=== PATIENT | female | born 1955 | race Caucasian/White ===

== ENCOUNTER 2022-02-17 20:14 | Emergency (ER) | payer MEDICARE, MEDICAID ==
[2022-02-17] MEDS ORDERED: ONDANSETRON ODT 4 MG TABLET TL STA (20:30)
--- NOTE | 2022-02-17 20:52 | ED Physician Documentation ---
PD HPI ABD PAIN - Stated complaint Stated Complaint: VOMITING,ABD/BACK PX - Chief complaint Chief Complaint: Abd Pain - History obtained from History obtained from: Patient, Family - History of Present Illness Timing - onset: Other (has been having these symptoms x 2.5 months, worse for few weeks and worsening still past few days) Quality: Pain Location: All over / everywhere (predominantly across upper abdomen) Associated symptoms: Nausea, Vomiting. No: Fever, Hematemesis, Diarrhea, Constipation, Melena, Hematochezia, Dysuria, Chest pain Similar symptoms before: No diagnosis Recently seen: Not recently seen - Additional information Additional information: c/o abdominal pain, predominantly across upper abdomen, radiating to back, with nausea and vomiting x approximately 10 weeks. Initially symptoms were intermittent but over past few weeks have become increasingly frequent, persistent, and intense, and past few days symptoms are constant and she is having difficulty keeping any PO down today. patient says she had a "falling out" (per patient) with her last primary care provider and thus currently does not have one; furthermore, she has not had any testing for these symptoms. Review of Systems Constitutional: denies: Fever, Chills, Sweats Eyes: reports: Reviewed and negative Ears: reports: Reviewed and negative Nose: reports: Reviewed and negative Throat: reports: Reviewed and negative Cardiac: reports: Reviewed and negative Respiratory: reports: Reviewed and negative GI: reports: Abdominal Pain, Nausea, Vomiting. 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 (this is why she takes xarelto) - Past Surgical History Past Surgical History: Yes General: Gastric surgery (gastric sleeve) - Present Medications Home Medications: Ambulatory Orders Medication Instructions Recorded Confirmed Bupropion HCl [Wellbutrin Xl] 300 mg PO DAILY 02/18/22 02/18/22 Lisinopril [Zestril] 20 mg PO DAILY 02/18/22 02/18/22 Omeprazole 40 mg PO DAILY 02/18/22 02/18/22 Rivaroxaban [Xarelto] 20 mg PO DAILY 02/18/22 02/18/22 hydroCHLOROthiazide [Hydrodiuril] 25 mg PO DAILY 02/18/22 02/18/22 - Allergies Allergies/Adverse Reactions: Allergies Allergy/AdvReac Type Severity Reaction Status Date / Time No Known Drug Allergies Allergy Verified 02/17/22 20:29 - Social History Does the pt smoke?: No Smoking Status: Never smoker Does the pt have substance abuse?: No - Immunizations Immunizations are current?: Yes - POLST Patient has POLST: No PD ED PE NORMAL - Vitals Vital signs reviewed: Yes - General General: Other (obese, appears uncomfortable due to painful distress, prefers to lie on either side (appears more uncomfortable and reports worsening pain when lying supine for part of exam)) - HEENT HEENT: Other (tacky/pasty mucous membranes) - Cardiac Cardiac: RRR, No murmur - Respiratory Respiratory: No respiratory distress, Clear bilaterally - Abdomen Abdomen: Soft, Non distended, Other (TTP across upper abdomen, most pronounced in epigastrium and less so in RUQ) - Back Back: No CVA TTP, No spinal TTP - Derm Derm: Normal color, Warm and dry - Extremities Extremities: No edema Results - Vitals Vitals: Vital Signs - 24 hr 02/17/22 02/17/22 02/18/22 20:23 23:44 00:49 Temperature 35.6 C L Heart Rate 67 77 96 Respiratory 18 16 16 Rate Blood Pressure 147/79 H 131/103 H 127/50 L O2 Saturation 100 96 97 02/18/22 02/18/22 02/18/22 02:05 04:02 06:00 Temperature 36.8 C 35.9 C L Heart Rate 77 89 78 Respiratory 16 16 18 Rate Blood Pressure 131/62 H 121/62 134/65 H O2 Saturation 100 95 99 Oxygen O2 Source Room air - Labs Labs: Laboratory Tests 02/17/22 02/17/22 02/17/22 20:51 21:30 23:30 WBC 9.3 RBC 5.39 Hgb 14.3 Hct 44.2 MCV 82.0 MCH 26.5 L MCHC 32.4 RDW 16.1 H Plt Count 303 MPV 10.4 Neut # (Auto) 6.9 H Lymph # (Auto) 1.5 [place] # (Auto) 0.8 Eos # (Auto) 0.1 Baso # (Auto) 0.1 Absolute Nucleated RBC 0.00 Nucleated RBC % 0.0 Sodium 138 Potassium 3.8 Chloride 93 L Carbon Dioxide 25 Anion Gap 20.0 H BUN 40 H Creatinine 1.5 H Estimated GFR (MDRD) 35 L Glucose 124 H Calcium 10.8 H Total Bilirubin 5.7 H AST 322 H ALT 310 H Alkaline Phosphatase 891 H Total Protein 8.1 Albumin 4.0 Globulin 4.1 Albumin/Globulin Ratio 1.0 Lipase 121 H Urine Color Urine Clarity Urine pH Ur Specific [place] Urine Protein Urine Glucose (UA) Urine Ketones Urine Occult Blood Urine Nitrite Urine Bilirubin Urine Urobilinogen Ur Leukocyte Esterase Urine RBC Urine WBC Ur Squamous Epith Cells Urine Bacteria Ur Microscopic Review Urine Culture Comments SARS-CoV-2 (PCR) NOT DETECTED 02/18/22 02/18/22 02/18/22 00:55 05:48 05:48 WBC 11.3 H RBC 5.18 Hgb 13.9 Hct 43.7 MCV 84.4 MCH 26.8 L MCHC 31.8 L RDW 16.1 H Plt Count 247 MPV 10.7 Neut # (Auto) 9.3 H Lymph # (Auto) 0.8 L [place] # (Auto) 1.1 H Eos # (Auto) 0.0 Baso # (Auto) 0.0 Absolute Nucleated RBC 0.00 Nucleated RBC % 0.0 Sodium 137 Potassium 4.0 Chloride 97 L Carbon Dioxide 25 Anion Gap 15.0 H BUN 37 H Creatinine 1.3 H Estimated GFR (MDRD) 41 L Glucose 112 H Calcium 10.2 Total Bilirubin 6.3 H AST 406 H ALT 328 H Alkaline Phosphatase 816 H Total Protein 7.6 Albumin 3.6 Globulin 4.0 Albumin/Globulin Ratio 0.9 L Lipase 51 Urine Color DARK YELLOW Urine Clarity HAZY Urine pH 5.5 Ur Specific [place] >=1.030 H Urine Protein 100 H Urine Glucose (UA) NEGATIVE Urine Ketones 15 H Urine Occult Blood NEGATIVE Urine Nitrite NEGATIVE Urine Bilirubin LARGE H Urine Urobilinogen >=8.0 H Ur Leukocyte Esterase SMALL H Urine RBC 0-5 Urine WBC 6-10 H Ur Squamous Epith Cells MANY Squamous H Urine Bacteria Few Ur Microscopic Review INDICATED Urine Culture Comments NOT INDICATED SARS-CoV-2 (PCR) - Rads (name of study) CT A/P Radiology: Prelim report reviewed, See rad report RUQ US Radiology: Prelim report reviewed, See rad report PD MEDICAL DECISION MAKING - ED course Complexity details: reviewed results, re-evaluated patient, considered differential, d/w patient ED course: Patient is in NAD after only 0.5mg IV dilaudid, reports excellent relief of her pain. She is also given IV zofran and IV NS. No previous results for comparative purposes. She has mildly elevated BUN (40) and creatinine (1.5). Most striking are her abnormal LFTs, with bilirubin 5.7, AST 322, ALT 310, and alkaline phosphatase 891. Lipase mildly elevated at 121. CT A/P intended to be with IV contrast but IV failed and thus the study is essentially noncontrast, demonstrates "mutiple clustered calcified gallstones...demonstrated in the region of the gallbladder neck. Gallbladder is well distended without wall thickening or pericholecystic fluid. No biliary ductal dilatation" (per radiology reading). US reading by radiology is "mild biliary ductal dilatation. Recommend correlation with laboratory values for possible biliary obstruction". She is held in ED overnight with plan of MRCP in the morning. Repeat LFTs show mostly mildly increased LFTs from previous result. Given concern for possible cholangitis, she is given IV zosyn. Care of patient turned over to Dr. Vee at end of my shift pending MRCP, the result of which should help determine appropriate disposition (admission to [facility] vs transfer to facility that can perform ERCP if this is indicated by MRCP result)
[2022-02-17 20:55] LABS: BASOPHILS # (AUTO) 0.1 10^3/uL (0.0-0.1); EOSINOPHILS # (AUTO) 0.1 10^3/uL (0.0-0.7); EOSINOPHILS % (AUTO) 0.8 %; HCT - HEMATOCRIT 44.2 % (37.0-47.0); HGB - HEMOGLOBIN 14.3 g/dL (12.0-16.0); LYMPHOCYTES # (AUTO) 1.5 10^3/uL (1.5-3.5); LYMPHOCYTES % (AUTO) 15.7 %; MEAN CORPUSCULAR HEMOGLOBIN 26.5 pg (27.0-31.0); MEAN CORPUSCULAR HGB CONC 32.4 g/dL (32.0-36.0); MEAN PLATELET VOLUME 10.4 fL (7.9-10.8); MONOCYTES # (AUTO) 0.8 10^3/uL (0.0-1.0); MONOCYTES % (AUTO) 8.4 %; NEUTROPHILS # (AUTO) 6.9 10^3/uL (1.5-6.6); NEUTROPHILS % (AUTO) 73.6 %; PLT - PLATELET COUNT 303 10^3/uL (130-450); RED BLOOD COUNT 5.39 10^6/uL (4.20-5.40); RED CELL DISTRIBUTION WIDTH 16.1 % (12.0-15.0); WHITE BLOOD COUNT 9.3 x10^3/uL (4.8-10.8)
[2022-02-17] MEDS ORDERED: SODIUM CHLORIDE 0.9% 1,000 ML IV STA (21:08)
[2022-02-17] MEDS ORDERED: ONDANSETRON 4 MG/2 ML VIAL IVP STA (21:08)
[2022-02-17] MEDS ORDERED: HYDROmorphone 1 MG/ML CARPUJECT IVP STA (21:08)
[2022-02-17 21:48] LABS: BILIRUBIN,TOTAL 5.7 mg/dL (0.2-1.0); CALCIUM 10.8 mg/dL (8.5-10.3); CREATININE 1.5 mg/dL (0.4-1.0); POTASSIUM 3.8 mmol/L (3.5-5.0); TOTAL PROTEIN 8.1 g/dL (6.7-8.2)
[2022-02-17] MEDS ORDERED: iohexoL-300 100 ML VIAL ONE (22:21)
--- NOTE | 2022-02-18 00:03 | CT Report ---
PROCEDURE: Abdomen/Pelvis W INDICATIONS: Abdominal pain. CONTRAST: IV CONTRAST: Isovue 300 ml: 100 PO CONTRAST: *NO PO CONTRAST TECHNIQUE: After the administration of intravenous contrast, 5 mm thick sections acquired from the diaphragms to the symphysis. 5 mm thick coronal and sagittal reformats were acquired. For radiation dose reducti on, the following was used: automated exposure control, adjustment of mA and/or kV according to dung ent size. Patient's IV extravasated during the course of the study. COMPARISON: None. FINDINGS: Image quality: Limited evaluation secondary to suboptimal contrast opacification. The majority of the contrast appears to have extravasated. Lung bases: Unremarkable. Heart: Heart is normal in size. There is a moderate-sized hiatal hernia. ABDOMEN: Liver: No mass lesion. Gallbladder:Multiple clustered calcified gallstones are demonstrated in the region of the gallbladde r neck. Gallbladder is well distended without wall thickening or pericholecystic fluid. Biliary ducts: No biliary ductal dilatation. Pancreas: Unremarkable. Spleen: Normal in size. Adrenal Glands:There is a right adrenal nodule with attenuation values compatible with a lipid rich adenoma. Kidneys and Ureters: No hydronephrosis. Stomach and Bowel: There are postsurgical changes along the stomach. Stomach, small bowel loops, and colon are normal in caliber and wall thickness. Appendix is normal in appearance. There is colonic diverticulosis. Peritoneum: No abnormal intraperitoneal fluid. No free air. Ventral Wall: No hernia. Abdominal Nodes: No retroperitoneal or mesenteric adenopathy by size criteria. Vessels: Aorta and inferior vena cava are normal in size. PELVIS: Pelvic Organs: Unremarkable. Bladder: Unremarkable. Pelvic Nodes: No enlarged lymph nodes. Miscellaneous: No inguinal hernias are seen. Bones: Visualized osseous structures demonstrate no suspicious focal lesions. IMPRESSION: 1. Limited study secondary to extravasation of intravenous contrast. 2. No definite acute intra-abdominal abnormality. 3. Cholelithiasis without CT evidence of acute cholecystitis. Reviewed by: Kayden Cohen MD on 02/18/2022 12:02 AM PDT Approved by: Kayden Cohen MD on 02/18/2022 12:02 AM PDT Station ID: [id number]
[2022-02-18] MEDS: SODIUM CHLORIDE 0.9% 1,000 ML IV STA ×2 (00:09→00:41)
--- NOTE | 2022-02-18 00:50 | Ultrasound Report ---
PROCEDURE: Abdomen Limited INDICATIONS: upper abdominal pain, abnormal LFTs TECHNIQUE: Real-time focused scanning was performed of the abdomen, with image documentation. COMPARISON: Concurrent CT abdomen and pelvis. FINDINGS: Liver demonstrates increased echogenicity and coarse sonographic echotexture consistent with fatty in filtration. Gallbladder demonstrates no stones, wall thickening, or pericholecystic fluid. There is suggestion of mild intrahepatic biliary ductal dilatation. The common bile duct is also mild ly distended, measuring up to 1.1 cm. Right kidney measures 9.3 cm. No hydronephrosis. Pancreas not well visualized sonographically. IMPRESSION: 1. Mild biliary ductal dilatation. Recommend correlation with laboratory values for possible biliary obstruction. 2. Increased hepatic echogenicity likely represents steatosis. Reviewed by: Kayden Cohen MD on 02/18/2022 12:49 AM PDT Approved by: Kayden Cohen MD on 02/18/2022 12:49 AM PDT Station ID: [id number]
[2022-02-18 01:05] LABS: GLUCOSE, URINE (UA) NEGATIVE (NEGATIVE); KETONES,URINE (UA) 15 mg/dL (NEGATIVE); LEUKOCYTE ESTERASE, URINE SMALL (NEGATIVE); NITRITE,URINE NEGATIVE (NEGATIVE); OCCULT BLOOD,URINE NEGATIVE (NEGATIVE); PH,URINE 5.5 PH (5.0-7.5); PROTEIN,URINE 100 mg/dL (NEGATIVE); UROBILINOGEN,URINE >=8.0 E.U./dL (NORMAL)
[2022-02-18 01:08] LABS: CLARITY,URINE HAZY (CLEAR)
[2022-02-18 01:13] LABS: BILIRUBIN,URINE LARGE (NEGATIVE); ICTOTEST,URINE POSITIVE
[2022-02-18 01:14] LABS: BACTERIA,URINE Few /HPF (None Seen); RBC,URINE 0-5 /HPF (0-5); SQUAMOUS EPITHELIAL CELL,UR MANY Squamous (<= Few)
[2022-02-18] MEDS ORDERED: iohexoL-300 100 ML VIAL IVP ONE (02:43)
[2022-02-18 06:04] LABS: BASOPHILS % (AUTO) 0.4 %; EOSINOPHILS % (AUTO) 0.1 %; HCT - HEMATOCRIT 43.7 % (37.0-47.0); HGB - HEMOGLOBIN 13.9 g/dL (12.0-16.0); LYMPHOCYTES # (AUTO) 0.8 10^3/uL (1.5-3.5); LYMPHOCYTES % (AUTO) 7.3 %; MEAN CORPUSCULAR HEMOGLOBIN 26.8 pg (27.0-31.0); MEAN CORPUSCULAR HGB CONC 31.8 g/dL (32.0-36.0); MEAN CORPUSCULAR VOLUME 84.4 fL (81.0-99.0); MEAN PLATELET VOLUME 10.7 fL (7.9-10.8); MONOCYTES # (AUTO) 1.1 10^3/uL (0.0-1.0); MONOCYTES % (AUTO) 9.5 %; NEUTROPHILS # (AUTO) 9.3 10^3/uL (1.5-6.6); NEUTROPHILS % (AUTO) 82.3 %; PLT - PLATELET COUNT 247 10^3/uL (130-450); RED BLOOD COUNT 5.18 10^6/uL (4.20-5.40); RED CELL DISTRIBUTION WIDTH 16.1 % (12.0-15.0); WHITE BLOOD COUNT 11.3 x10^3/uL (4.8-10.8)
[2022-02-18] MEDS ORDERED: ONDANSETRON 4 MG/2 ML VIAL IVP STA ×2 (06:06→13:04)
[2022-02-18] MEDS ORDERED: SODIUM CHLORIDE 0.9% 1,000 ML IV STA ×2 (06:08→13:05)
[2022-02-18 06:20] LABS: ALBUMIN 3.6 g/dL (3.2-5.5); ALBUMIN/GLOBULIN RATIO 0.9 (1.0-2.2); BILIRUBIN,TOTAL 6.3 mg/dL (0.2-1.0); CALCIUM 10.2 mg/dL (8.5-10.3); CREATININE 1.3 mg/dL (0.4-1.0); TOTAL PROTEIN 7.6 g/dL (6.7-8.2)
[2022-02-18] MEDS ORDERED: PIPERACILLIN/TAZOBACTAM 3.375 GM in SODIUM CHLORIDE 0.9% MINIBAG 100 ML IV STA (06:37)
[2022-02-18] MEDS ORDERED: ACETAMINOPHEN 325 MG TABLET PO STA (07:36)
--- NOTE | 2022-02-18 17:32 | MRI Report ---
PROCEDURE: MRCP W/O INDICATIONS: ITS.REASON: abdominal pain, abnormal LFTs TECHNIQUE: Coronal ultra fast SE through the abdomen, axial 2-D spoiled GE in- and [id number], and breath-hold T2 FSE with fat saturation through the biliary system and pancreas. Oblique coronal and axial thin- slice ultra fast SE, radial thick-slab ultra fast SE centered on the extrahepatic bile ducts. COMPARISON: CT abdomen and pelvis 02/17/2022 FINDINGS: Image quality: Excellent. Pancreas and biliary system: Intra- and extra-hepatic biliary ducts are non dilated. Pancreas is no rmal in morphology, without adjacent soft tissue edema. Pancreatic duct is normal in caliber. Gallb ladder demonstrates luminal stones without wall thickening. There is a filling defect identified with in the distal common bile duct at the sphincter of Brian measuring approximately 3 mm. A questionable second focus is noted more proximally similar in size. Other solid organs: Liver and spleen are normal in size. Minimal hepatic steatosis. No adrenal nodu les. Both kidneys are normal in size, without hydronephrosis. Simple scattered bilateral renal cyst s are noted. Nodes and vessels: No retroperitoneal or mesenteric adenopathy by size criteria. Aorta and inferior vena cava are normal in size. Bowel and peritoneum: Unenhanced bowel loops are normal in caliber. No free fluid. Lung bases: No basal pleural effusions. Heart size is normal. Bones and soft tissues: No ventral hernias. Bone marrow is of normal overall signal. IMPRESSION: Ill-defined areas of filling defect within the common bile duct as described above. Artifact is prese nt throughout the exam limiting areas of fine detail evaluation. While these could represent stones, it is noted that there is no gross ductal dilation. Stones however are noted in the gallbladder witho ut wall thickening. As clinically indicated, ERCP may be obtained for further evaluation. Reviewed by: Micheline Sanchez MD on 02/18/2022 5:30 PM PDT Approved by: Micheline Sanchez MD on 02/18/2022 5:30 PM PDT Station ID: [id number]
--- NOTE | 2022-02-18 18:05 | ED Physician Documentation ---
ED Addendum - Addendum Addendum: 02/18/22 18:04 Seen at bedside, she is pain-free with mild nausea. MRI reviewed, consistent with a presumed diagnosis of likely choledocholithiasis. Labs had trended slightly worse this morning. She is now waitlisted at multiple facilities for transfer for ERCP. I set expectations that given current hospital capacity issues and word from the [facility] that it could be days before she is transferred. Will monitor closely for signs of sepsis/ascending cholangitis which she does not have at this point. I also discussed that it is entirely possible that her labs might normalize and if she remains pain-free she could be discharged for interval cholecystectomy but at this point we do not have enough evidence that that would be safe.
[2022-02-18] MEDS: PIPERACILLIN/TAZOBACTAM 3.375 GM in SODIUM CHLORIDE 0.9% MINIBAG 100 ML IV SCH (21:27)
[2022-02-19] MEDS: PIPERACILLIN/TAZOBACTAM 3.375 GM in SODIUM CHLORIDE 0.9% MINIBAG 100 ML IV SCH ×4 (03:39→20:24)
[2022-02-19 04:56] LABS: BASOPHILS # (AUTO) 0.1 10^3/uL (0.0-0.1); BASOPHILS % (AUTO) 1.2 %; EOSINOPHILS # (AUTO) 0.2 10^3/uL (0.0-0.7); EOSINOPHILS % (AUTO) 2.8 %; HCT - HEMATOCRIT 37.6 % (37.0-47.0); LYMPHOCYTES # (AUTO) 1.6 10^3/uL (1.5-3.5); LYMPHOCYTES % (AUTO) 27.3 %; MEAN CORPUSCULAR HEMOGLOBIN 26.9 pg (27.0-31.0); MEAN CORPUSCULAR HGB CONC 31.9 g/dL (32.0-36.0); MEAN CORPUSCULAR VOLUME 84.3 fL (81.0-99.0); MEAN PLATELET VOLUME 10.4 fL (7.9-10.8); MONOCYTES # (AUTO) 0.7 10^3/uL (0.0-1.0); MONOCYTES % (AUTO) 11.7 %; NEUTROPHILS # (AUTO) 3.3 10^3/uL (1.5-6.6); NEUTROPHILS % (AUTO) 56.5 %; PLT - PLATELET COUNT 195 10^3/uL (130-450); RED BLOOD COUNT 4.46 10^6/uL (4.20-5.40); RED CELL DISTRIBUTION WIDTH 16.7 % (12.0-15.0); WHITE BLOOD COUNT 5.8 x10^3/uL (4.8-10.8)
[2022-02-19 05:11] LABS: ALBUMIN/GLOBULIN RATIO 0.9 (1.0-2.2); BILIRUBIN,TOTAL 6.4 mg/dL (0.2-1.0); CALCIUM 9.4 mg/dL (8.5-10.3); CREATININE 1.1 mg/dL (0.4-1.0); POTASSIUM 3.2 mmol/L (3.5-5.0); TOTAL PROTEIN 6.4 g/dL (6.7-8.2)
[2022-02-19] MEDS ORDERED: POTASSIUM CHLOR 10 MEQ/100 ML 10 MEQ/100 ML BAG IV ONE (07:42)
[2022-02-19] MEDS ORDERED: LACTATED RINGERS 1,000 ML IV STA (07:42)
[2022-02-19] MEDS ORDERED: MAGNESIUM OXIDE 400 MG TABLET PO STA (08:30)
[2022-02-19] MEDS ORDERED: POTASSIUM CHLORIDE 20 MEQ TABLET PO STA (08:30)
[2022-02-19] MEDS ORDERED: ONDANSETRON 4 MG/2 ML VIAL IVP STA (08:44)
--- NOTE | 2022-02-19 09:12 | ED Physician Documentation ---
ED Addendum - Addendum Addendum: Subjective: The patient was feeling okay this morning. She is not in any pain at this time. She was having clear liquid breakfast with Jell-O and some juice. I updated her that we still do not have a set time frame on transfer. Objective: Patient is awake alert and conversant. No apparent distress. Abdomen is soft and nontender at this time. Review of morning labs showed a low magnesium and potassium and supplements were ordered already this morning. Liver enzymes are slightly improved. Assessment: Elevated LFTs 2. Obstructed common bile duct 3. Coagulopathy. Plan: The patient will be maintained on some IV fluids. Clear liquid diet apparently. Supplement potassium and magnesium. Recheck labs this afternoon and again in the morning. 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 A shorter acting anticoagulant may be more appropriate in anticipation of ERCP procedure. I discussed it with the patient and we we will opt on heparin subcu twice daily instead. We will maintain her typical PPI, we does have pantoprazole rather than omeprazole in stock. Her blood pressure is reasonable this morning so we will hold on her lisinopril and diuretic. If she is here longer, we will also want to ensure her usual SSRI. 02/19/22 09:09
[2022-02-19] MEDS: PANTOPRAZOLE 40 MG TABLET PO SCH (10:00)
[2022-02-19] MEDS: HEPARIN 5,000 UNIT/ML VIAL SUBQ SCH ×2 (10:00→20:24)
[2022-02-19] MEDS: ONDANSETRON 4 MG/2 ML VIAL IVP PRN (20:25)
[2022-02-19] MEDS ORDERED: HYDROmorphone 1 MG/ML CARPUJECT IVP STA (20:34)
[2022-02-20] MEDS: PIPERACILLIN/TAZOBACTAM 3.375 GM in SODIUM CHLORIDE 0.9% MINIBAG 100 ML IV SCH ×4 (03:00→20:41)
[2022-02-20 04:57] LABS: BASOPHILS # (AUTO) 0.1 10^3/uL (0.0-0.1); BASOPHILS % (AUTO) 1.2 %; EOSINOPHILS # (AUTO) 0.2 10^3/uL (0.0-0.7); EOSINOPHILS % (AUTO) 3.7 %; HCT - HEMATOCRIT 35.5 % (37.0-47.0); HGB - HEMOGLOBIN 11.1 g/dL (12.0-16.0); LYMPHOCYTES % (AUTO) 35.7 %; MEAN CORPUSCULAR HEMOGLOBIN 27.1 pg (27.0-31.0); MEAN CORPUSCULAR HGB CONC 31.3 g/dL (32.0-36.0); MEAN CORPUSCULAR VOLUME 86.6 fL (81.0-99.0); MEAN PLATELET VOLUME 10.2 fL (7.9-10.8); MONOCYTES # (AUTO) 0.6 10^3/uL (0.0-1.0); MONOCYTES % (AUTO) 11.3 %; NEUTROPHILS # (AUTO) 2.7 10^3/uL (1.5-6.6); NEUTROPHILS % (AUTO) 47.6 %; PLT - PLATELET COUNT 188 10^3/uL (130-450); RED CELL DISTRIBUTION WIDTH 16.7 % (12.0-15.0); WHITE BLOOD COUNT 5.7 x10^3/uL (4.8-10.8)
[2022-02-20 05:09] LABS: ALBUMIN 2.7 g/dL (3.2-5.5); ALBUMIN/GLOBULIN RATIO 0.9 (1.0-2.2); CALCIUM 8.8 mg/dL (8.5-10.3); CREATININE 1.1 mg/dL (0.4-1.0); POTASSIUM 3.3 mmol/L (3.5-5.0); TOTAL PROTEIN 5.6 g/dL (6.7-8.2)
--- NOTE | 2022-02-20 08:54 | ED Physician Documentation ---
ED Addendum - Addendum Addendum: 02/20/22 08:54 Subjective: She had some side pain last night on the right, but pain-free now. Objective: Nontender abdominal exam, in good spirits. White count peaked at 11, now 5. Significant improvement in her biliary obstructive pattern this morning, her bilirubin is down to 3 from over 6, AST and ALT trending down as is her alkaline phosphatase. Vital signs basically normal. Assessment: Choledocholithiasis with obstructive pattern, no evidence of cholangitis but covered with antibiotics. Improving biliary biomarkers. No pain. Plan: She is waitlisted at multiple facilities for transfer for ERCP. The wait list is long with no facilities in [facility] having capacity right now. She is clinically improving. No pain right now. I will advance her diet at lunch and see how she does. If she continues to improve she might be able to go home presuming the stone is passed for interval cholecystectomy at a later date. 02/20/22 15:29 Her labs are pretty much stable this afternoon from this morning. She would like to stay in the hospital another day and see how it goes still seeking transfer.
[2022-02-20] MEDS: PANTOPRAZOLE 40 MG TABLET PO SCH (09:11)
[2022-02-20] MEDS: HEPARIN 5,000 UNIT/ML VIAL SUBQ SCH ×2 (09:11→20:41)
[2022-02-20 14:52] LABS: ALBUMIN 3.1 g/dL (3.2-5.5); ALBUMIN/GLOBULIN RATIO 0.9 (1.0-2.2); BILIRUBIN,TOTAL 2.9 mg/dL (0.2-1.0); CALCIUM 9.3 mg/dL (8.5-10.3); CREATININE 1.2 mg/dL (0.4-1.0); POTASSIUM 3.6 mmol/L (3.5-5.0); TOTAL PROTEIN 6.6 g/dL (6.7-8.2)
[2022-02-20] MEDS: ONDANSETRON 4 MG/2 ML VIAL IVP PRN (17:51)
[2022-02-21] MEDS: PIPERACILLIN/TAZOBACTAM 3.375 GM in SODIUM CHLORIDE 0.9% MINIBAG 100 ML IV SCH ×3 (02:58→15:43)
[2022-02-21 05:41] LABS: BASOPHILS # (AUTO) 0.1 10^3/uL (0.0-0.1); BASOPHILS % (AUTO) 1.4 %; EOSINOPHILS # (AUTO) 0.2 10^3/uL (0.0-0.7); EOSINOPHILS % (AUTO) 4.6 %; HCT - HEMATOCRIT 40.5 % (37.0-47.0); HGB - HEMOGLOBIN 12.6 g/dL (12.0-16.0); LYMPHOCYTES # (AUTO) 1.7 10^3/uL (1.5-3.5); LYMPHOCYTES % (AUTO) 34.3 %; MEAN CORPUSCULAR HGB CONC 31.1 g/dL (32.0-36.0); MEAN CORPUSCULAR VOLUME 86.7 fL (81.0-99.0); MEAN PLATELET VOLUME 10.2 fL (7.9-10.8); MONOCYTES # (AUTO) 0.5 10^3/uL (0.0-1.0); MONOCYTES % (AUTO) 10.4 %; NEUTROPHILS # (AUTO) 2.5 10^3/uL (1.5-6.6); NEUTROPHILS % (AUTO) 48.9 %; PLT - PLATELET COUNT 214 10^3/uL (130-450); RED BLOOD COUNT 4.67 10^6/uL (4.20-5.40); RED CELL DISTRIBUTION WIDTH 16.7 % (12.0-15.0)
[2022-02-21 05:57] LABS: ALBUMIN/GLOBULIN RATIO 0.9 (1.0-2.2); BILIRUBIN,TOTAL 2.7 mg/dL (0.2-1.0); CALCIUM 9.3 mg/dL (8.5-10.3); CREATININE 1.2 mg/dL (0.4-1.0); POTASSIUM 3.1 mmol/L (3.5-5.0); TOTAL PROTEIN 6.3 g/dL (6.7-8.2)
[2022-02-21] MEDS: PANTOPRAZOLE 40 MG TABLET PO SCH (09:20)
[2022-02-21] MEDS: HEPARIN 5,000 UNIT/ML VIAL SUBQ SCH (09:20)
--- NOTE | 2022-02-21 16:02 | ED Physician Documentation ---
ED Addendum - Addendum Addendum: 02/21/22 15:54 The patient was signed out to me at change of shift, continuing to pend transfer for ERCP. The patient had presented with abdominal complaints and been found to have cholelithiasis and choledocholithiasis, as well as cholecystitis. The patient has been receiving Zosyn here in the emergency department and has not had any pain for over 24 hours. Her liver function tests have slowly improved, though has been elevated including on the last set drawn around 5:00 this m kelsey. The patient has been without complaints, other than wanting to go home, And on reevaluation is appears well and in no distress. She has been on the [facility] waiting list for days, with no end in sight at this point. Surgery had already been consulted regarding her case, but can do little until ERCP can be completed. At this point in time I spoke with the surgeon, Dr. Barboza, again. The patient has choledocholithiasis and has had cholecystitis. She has had persistently elevated liver enzymes, though these are improving. She has had all of the work-up and intervention that can possibly be done here, with the exception of the ERCP which is the standard of care, because we do not have that capability here. Unfortunately, she is unlikely to get this anytime soon, due to the situation of bed shortages and [facility]. With that in mind, Dr. Rosas did make the following recommendation, that the patient could go home on Flagyl and Cipro, with clear liquid or low-fat diet. He has stated that the surgeons are willing to follow-up with the patient and do a cholecystectomy, once she is able to see GI and get an ERCP. As such, I did speak ultimately with Dr. Michael Rollins of the [facility] gastroenterology division, and he stated that he would work with his scheduling department to get the patient an expedited appointment so that she could be seen, either in person or by telehealth, and scheduled for an ERCP. I have relayed this information to the patient. I have also relayed to her that once she has been able to get her ERCP, she should plan to immediately follow-up with surgery to talk about getting her gallbladder out. I have had a very specific conversation with this patient regarding the fact that while this is not an ideal plan, it is the best that we can do under the circumstances at this time. With that in mind, I have emphasized the patient that she should have a very low threshold for return to the emergency department, especially if she develops intractable pain or vomiting, fever, or worsening jaundice. We will always be happy to take care of her here, but it would be in her best interest if she is able to go to one of the nearest hospitals that can offer ERCP, either [facility] or [place], should this need arise. The patient and her family expressed understanding and are agreeable to the plan. Final impression: 1. Cholelithiasis 2. Choledocholithiasis 3. Cholecystitis Disposition: Home in stable and improved condition.
[2022-02-21 16:40] VITALS: BP 114/87
== END 2022-02-21 16:40 | disposition home or self-care (01) ==
LOC: ED 20:14
DX: K80.60 Calculus of gallbladder and bile duct with cholecystitis, unspecified, without obstruction (principal); R94.5 Abnormal results of liver function studies; D68.9 Coagulation defect, unspecified; Z86.718 Personal history of other venous thrombosis and embolism; Z79.01 Long term (current) use of anticoagulants; D68.2 Hereditary deficiency of other clotting factors; Z75.1 Person awaiting admission to adequate facility elsewhere; Z20.822 Contact with and (suspected) exposure to COVID-19
CPT/HCPCS: 36415; 74177; 74181; 76705; 80053; 81001; 83690; 83735; 85025; 87635; 96361; 96365; 96366; 96372; 96375; 96376; 99284; 99285; A9270; J1170; J7120; Q9967; 81003; 87086

== ENCOUNTER 2022-04-22 08:00 | Outpatient (CLI) | payer MEDICARE, MEDICAID ==
[2022-04-22 16:32] LABS: BASOPHILS # (AUTO) 0.1 10^3/uL (0.0-0.1); BASOPHILS % (AUTO) 1.7 %; EOSINOPHILS # (AUTO) 0.1 10^3/uL (0.0-0.7); EOSINOPHILS % (AUTO) 2.2 %; HCT - HEMATOCRIT 38.7 % (37.0-47.0); HGB - HEMOGLOBIN 12.2 g/dL (12.0-16.0); LYMPHOCYTES # (AUTO) 1.7 10^3/uL (1.5-3.5); MEAN CORPUSCULAR HEMOGLOBIN 27.1 pg (27.0-31.0); MEAN CORPUSCULAR HGB CONC 31.5 g/dL (32.0-36.0); MEAN CORPUSCULAR VOLUME 85.8 fL (81.0-99.0); MEAN PLATELET VOLUME 10.9 fL (7.9-10.8); MONOCYTES # (AUTO) 0.6 10^3/uL (0.0-1.0); MONOCYTES % (AUTO) 10.1 %; NEUTROPHILS # (AUTO) 3.5 10^3/uL (1.5-6.6); NEUTROPHILS % (AUTO) 57.7 %; PLT - PLATELET COUNT 262 10^3/uL (130-450); RED BLOOD COUNT 4.51 10^6/uL (4.20-5.40)
[2022-04-22 16:50] LABS: ALBUMIN 3.7 g/dL (3.2-5.5); ALBUMIN/GLOBULIN RATIO 1.2 (1.0-2.2); ALKALINE PHOSPHATASE 206 IU/L (42-121); ALT ALANINE AMINOTRANSFERASE 17 IU/L (10-60); AST ASPARTATE AMINOTRANSFERASE 22 IU/L (10-42); BILIRUBIN,TOTAL 0.7 mg/dL (0.2-1.0); BUN - BLOOD UREA NITROGEN 33 mg/dL (6-20); CALCIUM 9.7 mg/dL (8.5-10.3); CARBON DIOXIDE - CO2 30 mmol/L (21-32); CHLORIDE 101 mmol/L (101-111); CHOL/HDL RATIO 3.4 (<4.4); CHOLESTEROL 268 mg/dL; GFR - MDRD 56 (>89); GLUCOSE 82 mg/dL (70-100); HDL CHOLESTEROL 78 mg/dL; LDL CHOLESTEROL,CALCULATED 171 mg/dL; LDL/HDL RATIO 2.2 (<4.4); POTASSIUM 3.8 mmol/L (3.5-5.0); SODIUM 139 mmol/L (135-145); TOTAL PROTEIN 6.9 g/dL (6.7-8.2); TRIGLYCERIDES 97 mg/dL; VLDL CHOLESTEROL 19 mg/dL
[2022-04-22 16:57] LABS: FREE T4 (FREE THYROXINE) 0.68 ng/dL (0.58-1.64)
[2022-04-22 19:23] LABS: THYROID STIMULATING HORMONE 3.3 uIU/mL (0.34-5.60)
[2022-04-22 22:06] LABS: ESTIMATED AVERAGE GLUCOSE 123 mg/dL (70-100); HEMOGLOBIN A1c% 5.9 % (4.27-6.07)
[2022-04-23 06:09] LABS: HCV AB <0.1 s/co ratio (0.0-0.9)
== END 2022-04-22 23:59 | disposition home or self-care (01) ==
LOC: LAB.R 08:00
PROVIDERS: ATTEND Internal Medicine
DX: K80.20 Calculus of gallbladder without cholecystitis without obstruction (principal); D68.51 Activated protein C resistance; I10 Essential (primary) hypertension; R73.03 Prediabetes; I26.99 Other pulmonary embolism without acute cor pulmonale; Z11.59 Encounter for screening for other viral diseases; E03.8 Other specified hypothyroidism; Z79.899 Other long term (current) drug therapy
CPT/HCPCS: 80053; 80061; 83036; 83721; 84439; 84443; 85025; 86803

== ENCOUNTER 2022-07-13 10:49 | Outpatient (CLI) | payer MEDICARE, MEDICAID ==
--- NOTE | 2022-07-14 15:38 | Mammography Report ---
BILATERAL DIGITAL SCREENING MAMMOGRAM 3D/2D: 07/13/2022 CLINICAL: Routine screening. Family history of breast cancer. Comparison is made to exams dated: 06/07/2021 ultrasound, 06/07/2021 mammogram - [facility], 020 mammogram, 08/24/2017 mammogram, 08/16/2016 mammogram, and 06/23/2015 mammogram - outside location. Both breasts are almost entirely fatty (category a/<25% glandular tissue). No significant masses, calcifications, or other findings are seen in either breast. There has been no significant interval change. IMPRESSION: NEGATIVE There is no mammographic evidence of malignancy. A 1 year screening mammogram is recommended. Based on the Tyrer Cuzick model (a risk assessment model) the patients lifetime risk is 10.2% and he r 10 year risk is 5.0%. According to the ACR, ACS, and NCCN guidelines, an annual breast MRI exam debra ng with mammogram is recommended if the patients lifetime risk is 20% or greater. This exam was interpreted at Station ID: [id number]. NOTE: For mammograms, a report in lay terms will be sent to the patient. Approximately 15% of breast malignancies will not be visualized mammographically. In the management of a palpable breast mass, a negative mammogram must not discourage biopsy of a clinically suspicious lesion. Electronically Signed By: Apoorva [email or web address]/maki:07/13/2022 18:30:43 letter sent: No_Letter ACR BI-RADS Category 1: Negative 3341F PARENCHYMAL PATTERN: (F) - The breast(s) demonstrate(s) diffuse fatty replacement. BI-RADS CATEGORY: (1) - 1 Mammogram [id number] 1 year screening LATERALITY: (B)
== END 2022-07-13 10:50 | disposition home or self-care (01) ==
LOC: DI.N 10:49
DX: Z12.31 Encounter for screening mammogram for malignant neoplasm of breast (principal); Z80.3 Family history of malignant neoplasm of breast

== ENCOUNTER 2023-04-03 10:25 | Outpatient (CLI) | payer MEDICARE, MEDICAID ==
--- NOTE | 2023-04-05 08:22 | SLEEP CARE CONSULTATION ---
Information from patient questionnaire entered by Sheila Olsen. I have reviewed and concur with the information entered by Sheila Olsen. This document represents the service I personally performed and the decisions made by me, Matthew Webb MD, [facility]. History of Present Illness Service Date and Time: 04/03/2023 1025 Reason for Visit: New patient Chief Complaint: reports: Observed pauses in breathing, Frequent awakenings at night Date of Onset: UNKNOWN Usual bedtime: 10-1 Time it takes to fall asleep: A FEW MIN Observed to quit breathing while asleep: Yes Number of times waking at night: 2-3 Reasons for waking at night: reports: Bathroom Toss, Turn, or Twitch while sleeping: No Recalls having dreams: Yes Usually gets out of bed at: 8-10AM Morning headache: Yes Sleepy or fatigued during the day: Yes Takes day naps: No Dreams during day naps: Yes Prior sleep studies: No Additional HPI information: I have the pleasure of seeing Ms. Malik today regarding the possibility of her having obstructive sleep apnea. As you know, she is a 67-year-old lady who reports having been seen stop breathing recently while being sedated during a procedure. The patient tells me that she normally goes to bed around 10 pm 1 am, and it takes her approximately just a few minutes to fall asleep. She has not been told that she snores loudly or irregularly at night. She sleeps alone. She can recall waking up on the average of 2 - 3 times during the night. Most of the time she wakes up because of having to use the bathroom. She has never awakened because of her own snoring, choking, or having to gasp for air. There is not a lot of tossing and turning in her sleep. No somniloquy (sleep talking) or somnambulism (sleep walking). Generally, she can recall having dreams. In the morning she usually gets up out of the bed around 8 - 10 a.m. not feeling refreshed nor rested. She usually has a morning headache. During the day she complains of feeling sleepy and fatigued. Her score on [place] Sleepiness Scale is 10 out of 24. She never has fallen asleep while driving nor has had any accident due to sleepiness. She usually does not take naps during the day. She reports having impaired concentration during the day. - Parasomnia Symptoms Ever been unable to move upon waking from sleep: No Walks in sleep: No Ever acted out dreams in sleep: Yes Ever felt weak in the knees when startled or emotional: No Bothered by creepy, crawly, restless sensations in legs: No Problems with memory or concentration: Yes Subjective Initial [place] Sleepiness Scale score: 10 (04/03/23) Past Medical History Past Medical History: reports: Arthritis, GERD, Other (FACTOR FIVE BLOOD CLOTTING DISORDER) Social History The patient's occupation is a RE. Patient is Single and lives in . Have you smoked in the past 12 months: No Years of smokin Quit date: 2011 Alcohol use: No Caffeine use: Yes Caffeine amount and frequency: 16OZ C 4-4X DAILY Family History Family history of sleep disordered breathing: Yes Family Hx Sleep Apnea: Father: Snoring Allergies and Home Medications Known drug allergies: No Drug allergies reviewed: Yes Home medication list reviewed: Yes Allergy and home medication list: Allergies No Known Drug Allergies Allergy (Verified 03/29/23 11:22) Review of Systems Weight loss over past 5 years: 55 Cardiovascular: reports: high blood pressure, irregular heart rate or pulse, leg or foot swelling Respiratory: reports: shortness of breath Gastrointestinal: reports: heartburn, nausea Urinary: reports: urgency Neurological: reports: gait or balance problems Ear/Nose/Throat: reports: wisdom teeth removed Endocrine: reports: too hot or cold Musculoskeletal: reports: joint pain, neck pain, back pain, joint swelling, muscle pain or cramping, mobility problems Immunologic: reports: sneezing, rash, itching Physical Exam Vital signs obtained and entered by: SHEILA Judge MA Blood Pressure: 120/70 (LEFT ARM) Cuff size: regular Heart Rate: 76 O2 Saturation: 97 Height: 5 ft 11 in Weight: 285 lb Body Mass Index: 39.7 BMI Classification: Obese Neck circumference: 14 Impression and Plan Visit Type: In Office Provider Statement: I spent 100% of the Face to Face Visit with the patient with greater than 50% spent counseling the patient and coordination of care.
[2023-04-05 08:27] VITALS: BP 120/70; O2SAT 97
== END 2023-04-03 10:26 | disposition home or self-care (01) ==
LOC: SC 10:25
PROVIDERS: ATTEND Internal Medicine Pulmonary Disease
DX: G47.10 Hypersomnia, unspecified (principal); R06.83 Snoring; R06.81 Apnea, not elsewhere classified; G47.8 Other sleep disorders; Z87.891 Personal history of nicotine dependence; E66.9 Obesity, unspecified; Z68.39 Body mass index [BMI] 39.0-39.9, adult
CPT/HCPCS: 99202; G0463; 99212

== ENCOUNTER 2023-12-20 12:59 | Outpatient (CLI) | payer MEDICARE, MEDICAID ==
--- NOTE | 2023-12-21 13:18 | MRI Report ---
PROCEDURE: Lumbar Spine WO INDICATIONS: LOW BACK PAIN TECHNIQUE: Noncontrast sagittal T1 spin echo and T2 fast echo, sagittal STIR, axial T1 and T2 fast spin echo thr ough the lumbar spine. In cases with scoliosis, additional coronal T2 fast spin echo may be performe d. COMPARISON: None. FINDINGS: Image quality: Excellent. Alignment and Curvature: There is normal bony alignment. Bone Marrow: Marrow is of normal overall signal. No acute vertebral body compression fractures. Spinal Cord: Conus medullaris terminates at the L2 level. Visualized cord demonstrates normal signa l and size. Paraspinous Soft Tissues: No paravertebral masses. T12-L1: Disc desiccation and height loss. Mild disc bulge. No central canal or neuroforaminal stenos is. L1-L2: Facet arthropathy. No central canal stenosis. Mild bilateral neuroforaminal stenosis. L2-L3: Facet arthropathy and thickening of ligamenta flava. No significant central canal stenosis. No neuroforaminal stenosis. L3-L4: Facet arthropathy and thickening of ligamentum flavum. Mild disc desiccation and height loss . Mild diffuse disc bulge. Mild central canal stenosis. No neuroforaminal stenosis. L4-L5: Disc desiccation and severe disc height loss. Mild diffuse disc bulge with small superimpose d central disc protrusion. Facet arthropathy. Mild central canal stenosis. Mild bilateral neural fora dominic stenosis. L5-S1: Disc desiccation and severe disc height loss. Mild diffuse disc bulge, asymmetric to the lef t. Mild narrowing of the left lateral recess. Facet arthropathy. Mild central canal stenosis. Moderat e left and no right neuroforaminal stenosis. IMPRESSION: 1.Multilevel degenerative changes of the lumbar spine as described above. 2.Mild central canal stenosis at L3-L4, L4-5 and L5-S1. 3.Moderate left neuroforaminal stenosis at L5-S1. Mild neuroforaminal stenosis bilaterally at L1-L2 a nd L4-L5. Reviewed by: Saul Phillips MD on 12/21/2023 1:16 PM PDT Approved by: Saul Phillips MD on 12/21/2023 1:16 PM PDT Station ID: [id number]
== END 2023-12-20 13:00 | disposition home or self-care (01) ==
LOC: DI 12:59
PROVIDERS: ATTEND Physical Medicine & Rehabilitation
DX: M47.816 Spondylosis without myelopathy or radiculopathy, lumbar region (principal); M47.817 Spondylosis without myelopathy or radiculopathy, lumbosacral region; M48.061 Spinal stenosis, lumbar region without neurogenic claudication; M48.07 Spinal stenosis, lumbosacral region